=== PATIENT | female | born 1980 | race Two or more races ===

== ENCOUNTER 2019-12-20 09:42 | Emergency (ER) | payer OTHER ==
[~2019-12-20] VITALS: Ht 165.1 cm; Wt 80.7 kg
== END 2019-12-20 12:27 | disposition home or self-care (01) ==
LOC: ER 09:42
DX: S60.222A Contusion of left hand, initial encounter (principal); W10.8XXA Fall (on) (from) other stairs and steps, initial encounter; Y93.89 Activity, other specified; Y92.238 Other place in hospital as the place of occurrence of the external cause; Y99.8 Other external cause status

== ENCOUNTER 2022-08-20 10:00 | Emergency (ER) | payer OTHER ==
[~2022-08-20] VITALS: Ht 165.1 cm; Wt 78.5 kg
[2022-08-20] MEDS ORDERED: DICLOFENAC POTA50 MG PO (13:12)
== END 2022-08-20 13:55 | disposition home or self-care (01) ==
LOC: ER 10:00
DX: S83.91XA Sprain of unspecified site of right knee, initial encounter (principal)

== ENCOUNTER 2022-12-27 21:54 | Emergency (ER) | payer OTHER ==
[~2022-12-27] VITALS: Ht 165.1 cm; Wt 81.6 kg
[~2022-12-27 21:54] MED LIST: DICLOFENAC POTA50 MG PO
== END 2022-12-28 01:13 | disposition home or self-care (01) ==
LOC: ER 21:54
DX: S99.822A Other specified injuries of left foot, initial encounter (principal); X58.XXXA Exposure to other specified factors, initial encounter; Y93.89 Activity, other specified; Y92.89 Other specified places as the place of occurrence of the external cause; Y99.9 Unspecified external cause status

== ENCOUNTER 2024-12-30 17:33 | Emergency (ER) | payer OTHER ==
[~2024-12-30] VITALS: Ht 167.6 cm; Wt 65.8 kg
[2024-12-30] MEDS ORDERED: BENZONATATE 100 MG CAPSULE PO ONE (19:15)
[2024-12-30 20:32] LABS: HEMATOCRIT 34.9 % (36.0-45.00); HEMOGLOBIN 11.2 g/dL (12.0-15.00); MEAN CELL VOLUME 81.3 fL (80.00-100.00); MEAN CORPUSCULAR HEMOGLOBIN 26.1 pg (27.00-32.0); PLATELET COUNT 279 K/uL (150-450); RED BLOOD COUNT 4.29 M/uL (4.00-6.00); RED CELL DISTRIBUTION WIDTH 15.5 % (11.5-14.5)
[2024-12-30] MEDS ORDERED: ZITHROMAX TRI-500 MG PO (22:51)
[2024-12-30] MEDS ORDERED: GILTUSS COUGH-118 M1 PO (22:51)
[2024-12-30] MEDS ORDERED: ACETAMINOPHEN500 M1 PO (22:51)
== END 2024-12-31 00:33 | disposition home or self-care (01) ==
LOC: ER 17:35
PROVIDERS: Preventive Medicine Public Health & General Preventive Medicine
DX: J06.9 Acute upper respiratory infection, unspecified (principal); Z20.822 Contact with and (suspected) exposure to COVID-19